=== PATIENT | male | born 1980 | race American Indian/Alaskan Native ===

== ENCOUNTER 2020-08-12 18:06 | Emergency (ER) | payer OTHER ==
[~2020-08-12] VITALS: Ht 170.2 cm; Wt 68.2 kg
[2020-08-12 18:09] VITALS: BP 118/66
[2020-08-12] MEDS ORDERED: AMOX-422 PO (19:44)
[2020-08-12] MEDS ORDERED: OFLO5DRO5 LEFT EAR (19:44)
[2020-08-12] MEDS ORDERED: IBUP-1984 PO (19:44)
[2020-08-12] MEDS ORDERED: ibuprofen tablet 400 MG TABLET PO ONE (19:45)
== END 2020-08-12 19:52 | disposition home or self-care (01) ==
LOC: ER 18:07
DX: H60.92 Unspecified otitis externa, left ear (principal); Z79.2 Long term (current) use of antibiotics; Z79.899 Other long term (current) drug therapy
CPT/HCPCS: 99283